=== PATIENT | male | born 1940 | race Two or more races ===

== ENCOUNTER 2024-11-26 15:14 | Inpatient (IN) | payer OTHER ==
[~2024-11-26] VITALS: Ht 170.2 cm; Wt 55.3 kg
[2024-11-26 15:54] LABS: PLATELET COUNT (AUTO) 270 K/uL (150-450); RED BLOOD CELL COUNT(AUTO) 3.68 MIL/uL (4.5-6.0); RED CELL DISTRIBUTION WIDTH 13.8 % (11.5-15.0); WHITE BLOOD COUNT (AUTO) 6.8 K/uL (4.3-11.0)
[2024-11-26 16:01] LABS: CALCIUM, SERUM 8.9 mg/dL (8.5-10.1); CREATININE 0.9 mg/dL (0.6-1.3); SODIUM SERUM 141 mmol/L (136-145); UREA NITROGEN, BLOOD 15 mg/dL (7-18)
[2024-11-26 16:14] LABS: NT-PRO BNP 375 pg/mL (0-125)
[2024-11-26] MEDS ORDERED: CT SWABBABLE VALVE TRANS SET 1 EA INFUS.SET MC ONE (17:03)
[2024-11-26] MEDS ORDERED: IV NS 0.9% 250 ML IV ONE (17:03)
[2024-11-26] MEDS ORDERED: IOHEXOL-350 100 ML VIAL IV ONE (17:03)
[2024-11-26] MEDS ORDERED: DONE5TAB34 PO (18:20)
[2024-11-26] MEDS ORDERED: ALBU8.5H8 IH (18:20)
[2024-11-26] MEDS ORDERED: ASPIRIN EC 325 MG TABLET.DR PO ONE (18:44)
[2024-11-26] MEDS: ASPIRIN EC 325 MG TABLET.DR PO ONE (18:55)
[2024-11-26] MEDS ORDERED: Z GUARD REMEDY 4 OZ OINT TP PRN (20:00)
[2024-11-26] MEDS ORDERED: MAG HYDROX/AL HYDROX/SIMETH 30 ML UDC PO PRN (20:00)
[2024-11-26] MEDS ORDERED: ACETAMINOPHEN 325 MG TABLET PO PRN (20:00)
[2024-11-26] MEDS ORDERED: ONDANSETRON HCL/PF 4 MG/2 ML VIAL IVP PRN (20:00)
[2024-11-26 22:00] VITALS: BP 149/88; TEMP 97.9; O2SAT 96
[2024-11-26] MEDS ORDERED: CEFTRIAXONE 1GM BAG (ER ONLY) 50 ML IV ONE (22:27)
[2024-11-26] MEDS: CEFTRIAXONE 1 G in IV D5W 50 ML IV SCH (22:44)
[2024-11-26] MEDS ORDERED: DOXYCYCLINE 100 MG VIAL ONE (23:54)
[2024-11-26] MEDS: ALBUTEROL FS 2.5 MG/0.5 ML VIAL.NEB NEB PRN (23:58)
[2024-11-26 23:59] VITALS: O2SAT 99
[2024-11-27] VITALS (7 sets, daily range): BP systolic 119–140; BP diastolic 77–87; TEMP 97.5–98.2; O2SAT 97–100
[2024-11-27] MEDS: DOXYCYCLINE 100 MG in IV D5W 100 ML IV SCH (00:27)
[2024-11-27 06:57] LABS: PLATELET COUNT (AUTO) 275 K/uL (150-450); RED BLOOD CELL COUNT(AUTO) 3.63 MIL/uL (4.5-6.0); RED CELL DISTRIBUTION WIDTH 13.4 % (11.5-15.0); WHITE BLOOD COUNT (AUTO) 6.5 K/uL (4.3-11.0)
[2024-11-27 07:32] LABS: CALCIUM, SERUM 9.2 mg/dL (8.5-10.1); CREATININE 0.7 mg/dL (0.6-1.3); PHOSPHORUS 3.3 mg/dL (2.5-4.9); SODIUM SERUM 142.0 mmol/L (136-145); UREA NITROGEN, BLOOD 12.0 mg/dL (7-18)
[2024-11-27 07:44] LABS: LDL 69.0 mg/dL (0-99)
[2024-11-27] MEDS: PANTOPRAZOLE 40 MG TABLET.DR PO SCH (08:04)
[2024-11-27] MEDS: DONEPEZIL 5 MG TABLET PO SCH (08:04)
[2024-11-27] MEDS: ASPIRIN EC 81 MG TABLET.DR PO SCH (08:04)
[2024-11-27] MEDS: ENOXAPARIN SODIUM 60 MG/0.6 ML DISP.SYRIN SQ SCH (09:00)
[2024-11-27] MEDS: ATORVASTATIN 10 MG TABLET PO SCH (09:00)
[2024-11-27] MEDS ORDERED: IOHEXOL-350 100 ML VIAL IV ONE (15:58)
[2024-11-27] MEDS ORDERED: IV NS 0.9% 500 ML IV ONE (15:58)
[2024-11-27] MEDS ORDERED: CEFTRIAXONE 1 G in IV D5W 50 ML IV SCH (21:00)
[2024-11-28] VITALS: BP_SYST 118; BP_SYST 130; BP_DIAS 69; BP_DIAS 76; TEMP 97.5; TEMP 98.5; O2SAT 97
[2024-11-28 04:00] VITALS: BP 124/80; TEMP 97.7; O2SAT 96
[2024-11-28 08:00] VITALS: BP 124/86; TEMP 99; O2SAT 96
[2024-11-28] MEDS: VALSARTAN 80 MG TABLET PO SCH (08:16)
[2024-11-28 09:34] LABS: ABG BASE EXCESS 2.8 mmol/L (-2.0-3.0); ABG OXYGEN SATURATION 93.7 % (94.0-98.0); ABG PCO2 38.7 mmHg (35.0-48.0); ABG PH 7.457 (7.350-7.450); ABG PO2 68.2 mmHg (83.0-108.0); ABG TOTAL HEMOGLOBIN 14.7 G/dL (13.5-17.5); FRACTIONATED INSPIRED OXYGEN 21.0 %; SITE, ABG LEFT RADIAL
[2024-11-28 11:16] LABS: PLATELET COUNT (AUTO) 292 K/uL (150-450); RED BLOOD CELL COUNT(AUTO) 3.78 MIL/uL (4.5-6.0); RED CELL DISTRIBUTION WIDTH 13.7 % (11.5-15.0); WHITE BLOOD COUNT (AUTO) 6.5 K/uL (4.3-11.0)
[2024-11-28 11:47] LABS: ASPARTATE AMINOTRANSFERASE 27.0 U/L (15-37); CALCIUM, SERUM 8.9 mg/dL (8.5-10.1); CREATININE 0.6 mg/dL (0.6-1.3); PHOSPHORUS 2.9 mg/dL (2.5-4.9); SODIUM SERUM 135.0 mmol/L (136-145); TOTAL PROTEIN, SERUM 6.4 g/dL (6.4-8.2); UREA NITROGEN, BLOOD 17.0 mg/dL (7-18)
[2024-11-28 12:00] VITALS: BP 100/82; TEMP 98.2; O2SAT 96
[2024-11-28 16:00] VITALS: BP 83/62; TEMP 97.5; O2SAT 98
[2024-11-28 20:00] VITALS: BP 103/68; TEMP 98.1; O2SAT 96
[2024-11-29] VITALS: BP 108/70; TEMP 98.2; O2SAT 94
[2024-11-29 04:00] VITALS: BP 110/73; TEMP 98.4; O2SAT 96
[2024-11-29 08:00] VITALS: BP 136/78; TEMP 97.9; O2SAT 95
[2024-11-29 11:30] VITALS: BP 94/71; TEMP 97.7; O2SAT 96
[2024-11-29 16:00] VITALS: BP 100/68; TEMP 98.1; O2SAT 95
[2024-11-30] VITALS: BP 137/87; TEMP 97.7; O2SAT 96
[2024-11-30 06:56] LABS: CALCIUM, SERUM 8.7 mg/dL (8.5-10.1); CREATININE 0.7 mg/dL (0.6-1.3); SODIUM SERUM 144.0 mmol/L (136-145); UREA NITROGEN, BLOOD 16.0 mg/dL (7-18)
[2024-11-30 06:57] LABS: PLATELET COUNT (AUTO) 231 K/uL (150-450); RED BLOOD CELL COUNT(AUTO) 3.55 MIL/uL (4.5-6.0); RED CELL DISTRIBUTION WIDTH 13.0 % (11.5-15.0); WHITE BLOOD COUNT (AUTO) 5.6 K/uL (4.3-11.0)
[2024-11-30 08:00] VITALS: BP 132/82; TEMP 97.5; O2SAT 94
[2024-11-30 20:00] VITALS: BP 133/88; TEMP 97.8; O2SAT 98
[2024-12-01] VITALS: BP 116/71; TEMP 97.8; O2SAT 96
[2024-12-01 04:00] VITALS: BP 110/64; TEMP 98.2; O2SAT 97
[2024-12-01 04:04] VITALS: BP 110/64; TEMP 98.2; O2SAT 97
[2024-12-01 08:00] VITALS: BP 115/72; TEMP 97.9; O2SAT 96
[2024-12-01] MEDS: ENOXAPARIN SODIUM 40 MG/0.4 ML DISP.SYRIN SQ SCH (08:37)
[2024-12-01] MEDS ORDERED: ATORVASTATIN 10 MG TABLET PO SCH (09:30)
[2024-12-01] MEDS: TICAGRELOR 90 MG TABLET PO SCH (10:27)
[2024-12-01 11:30] VITALS: BP 118/69; TEMP 98.1; O2SAT 96
[2024-12-01] MEDS ORDERED: ASPI-1420 PO (11:35)
[2024-12-01] MEDS ORDERED: TICA90TA PO (11:35)
[2024-12-01] MEDS ORDERED: VALS160T2 PO (11:35)
[2024-12-01] MEDS ORDERED: ATOR10TA PO (11:35)
[2024-12-01] MEDS: KEY,NONCONTROL,TO KEEP IN PYXI 1 EA MC ONE (12:21)
[2024-12-01 16:00] VITALS: BP 120/73; TEMP 97.7; O2SAT 97
== END 2024-12-01 17:55 | disposition home or self-care (01) | DRG 322 ==
LOC: ER 15:28 → TELE 21:35
PROVIDERS: ATTEND Nurse Practitioner Family
PROC: 027034Z Dilation of Coronary Artery, One Artery with Drug-eluting Intraluminal Device, Percutaneous Approach (ICD-10-PCS; principal; 2024-11-30)
PROC: 4A023N6 Measurement of Cardiac Sampling and Pressure, Right Heart, Percutaneous Approach (ICD-10-PCS; 2024-11-30)
PROC: B211YZZ Fluoroscopy of Multiple Coronary Arteries using Other Contrast (ICD-10-PCS; 2024-11-30)
DX: I21.4 Non-ST elevation (NSTEMI) myocardial infarction (principal); J40 Bronchitis, not specified as acute or chronic; F03.90 Unspecified dementia, unspecified severity, without behavioral disturbance, psychotic disturbance, mood disturbance, and anxiety; I27.20 Pulmonary hypertension, unspecified; I25.10 Atherosclerotic heart disease of native coronary artery without angina pectoris; M41.9 Scoliosis, unspecified; J98.4 Other disorders of lung
CPT/HCPCS: 36415; 36600; 71045-TC; 75574; 80048-TC; 80053-TC; 80061-TC; 82803-TC; 83735-TC; 83880; 84100-TC; 84443-TC; 84484-TC; 85025-TC; 85378-TC; 93307-TC; 97110-TC; 97116-TC; 97530-TC; A4223; G0378; J0696; J1650; J3490; J7040; J7050; J7060; Q9967